=== PATIENT | female | born 2005 | race Caucasian/White ===

== ENCOUNTER 2025-07-01 22:20 | Emergency (ER) | payer BC, SELFPAY ==
[2025-07-01 22:24] VITALS: BP 143/90; PULSE 91; RESP 18; TEMP 36.2; O2SAT 97; BMI 26.3
--- NOTE | 2025-07-02 00:09 | EX.ED.DYSGE1 ---
HPI History of Present Illness Chief Complaint: Dizziness Informant: patient Narrative Narrative: Patient is a 20-year-old female who states she has a history of anxiety/depression and takes citalopram. She reports that over the past 3 to 5 days she has had increased congestion and drainage. She reports she took citalopram as she normally does and then Sudafed was used roughly 6 to 8 hours later. She states she then has developed bouts of dizziness which she describes as a sense of motion. She states that symptoms will cause blurry vision and nausea but will improve while she is at rest. She states she is unsure if this is a potential allergic reaction or interaction between the medications or some other event is causing her symptoms and secondary to this comes in for evaluation. PFS PFS Medical History no medical history Home Medications ?Medication ?Instructions ?Recorded ?Last Taken ?Type prednisone 20 mg tablet 40 mg (2 x 20 mg) PO DAILY 5 days 07/02/25 Unknown Rx #10 tabs Allergy/AdvReac Type Severity Reaction Status Date / Time No Known Allergies Allergy Verified 07/01/25 22:24 Family History no significant family his Surgical History no surgical history Social History Smoking Status: Never smoker ROS ROS ED Constitutional Constitutional ED: Denies chills or fever(s) Eyes Eyes: Reports blurry vision ENT ENT ED: Reports rhinorrhea and sore throat Cardiovascular Cardiovascular: Denies chest pain Respiratory/Chest Respiratory/Chest: Reports cough; Denies dyspnea Gastrointestinal Gastrointestinal: Reports nausea; Denies abdominal pain, diarrhea or vomiting Genitourinary Genitourinary ED: Denies dysuria Musculoskeletal Musculoskeletal: Denies myalgias or neck pain Integumentary Denies rash Neurologic Neurologic: Reports other Details: Positive dizziness ; Denies headache(s) Hematologic/Lymphatic Hematologic/Lymphatic: Denies easy bleeding or easy bruising EXAM Physical Exam Const Vital Signs: 07/01/25 22:24 Temperature 97.2 F L Temperature Source Temporal Pulse Rate 91 Respiratory Rate 18 Blood Pressure 143/90 H Blood Pressure Mean 107 Pulse Ox 97 Oxygen Delivery Method Room Air Positive well nourished and well developed General Appearance ED: well developed; Negative for pallor HEENT HEENT Narrative: Normocephalic atraumatic Nasal mucosa is hyperemic and boggy Cobblestoning is noted in the posterior pharynx consistent with sinus drainage; no airway edema or compromise. No secondary findings to suggest infection Bilateral TMs are retracted without secondary findings to suggest infection Eyes PERRL and EOMs intact bilaterally General Eye ED: Negative for scleral icterus Neck supple Neck Narrative: No nuchal rigidity or meningeal signs Resp normal respiratory effort and clear to auscultation bilaterally Cardio regular rate and regular rhythm Rate: other Other Details: Heart is regular rate and rhythm without murmurs rubs or gallop Radial and carotid pulses are equal and symmetric No carotid bruit noted Extremity normal to inspection Neuro oriented x3, CN's II-XII intact bilaterally and no sensory deficits noted Neuro Narrative: GCS of 15 Cranial nerves II through XII are grossly intact without focal neurologic deficit No pronator drift no dysmetria no truncal ataxia NIH stroke scale score of 0 There is mild horizontal nystagmus noted Positive Hallpike [place] exam on left Sensorium / Orientation: alert Motor Exam: strength 5/5 throughout Psych mental status grossly normal Skin no rashes or lesions noted General Skin Exam: Negative for jaundice or pallor MDM MDM MDM Narrative Medical decision making narrative: Patient arrived to the ER hypertensive otherwise with stable vitals. She reported that she was experiencing bouts of dizziness which she described more as a sense of motion and stated these worsened with changes in head position or body position. Moreover when they came on they made her have blurry vision and feel nauseous. She states that she was concerned this could be an interaction between her citalopram and the Sudafed she was taking. However her physical exam is most consistent with a viral URI and do feel that the dizziness is peripheral vertigo secondary to eustachian tube dysfunction from the viral infection. We did discuss potential workup with head CT and/or CTA but as her history and exam indicates that this is a eustachian tube dysfunction issue not a posterior circulation issue and concern for brain mass is low patient did not want to undergo imaging studies. Also she has not had bouts of vomiting or diarrhea to suggest acute dehydration and there has been no reported significant blood loss to suggest acute blood loss anemia as a cause. Therefore at this time we will simply start the patient on medication to help with pressure within the eustachian tube and as concern for interaction between citalopram and Sudafed is extremely low there is no need for further intervention and she is otherwise safe for discharge. History & Record Review Discussion w/independent historian: Patient and Friend Discharge Plan Triage Chief Complaint: Dizziness ED Provider: Siddhartha Lal Dx/Rx/DC Orders Clinical Impression: Viral upper respiratory tract infection, Acute dysfunction of eustachian tube, Dizziness Instructions: Eustachian Tube Problems, ED Vertigo, Unspecified Prescriptions: New prednisone 20 mg tablet 40 mg PO DAILY 5 Days Qty: 10 0RF Primary Care Provider: JOSÉ MIGUEL HOYT Referrals: Isael Gagnon MD [Med Staff - Active Staff, Family Practice] Activity Restrictions/Additional Instructions: Please stop the Sudafed and begin taking the prednisone as directed. Your symptoms are related to pressure with in your inner ear leading to balance dysfunction. The steroid should help reduce sinus congestion and pressure as well as the sensation of dizziness associated with this. If you have any further concerns or worsening of symptoms please return to the ER for repeat evaluation Print Language: German Disposition Disposition: Home, Self Care Discharge Date/Time: 07/02/25 00:24
[2025-07-02 00:18] VITALS: BP 129/89; PULSE 70; RESP 16; TEMP 36.2; O2SAT 97
[2025-07-02 00:19] VITALS: BP 129/89; PULSE 68
== END 2025-07-02 00:24 | disposition home or self-care (01) ==
LOC: ED 07-02 00:23
PROVIDERS: Emergency Provider Emergency Medicine; Visit Provider Emergency Medicine
DX: J06.9 Acute upper respiratory infection, unspecified (principal); H69.82 Other specified disorders of Eustachian tube, left ear; R42 Dizziness and giddiness
CPT/HCPCS: 99282